=== PATIENT | male | born 1965 | race Caucasian/White ===

== ENCOUNTER 2024-08-21 16:56 | Emergency (ER) | payer BC, SELFPAY ==
[2024-08-21 16:56] VITALS: BMI 22.8
[2024-08-21 17:03] VITALS: BP 117/72
[2024-08-21 17:23] LABS: % Basophils 0.1 % (0-2); % Eosinophils 0.1 % (0-6); % Immature Granulocytes 0.5 % (0-0.5); % Lymphocytes 6.5 % (20.5-51.1); % Monocytes 4.8 % (1.7-9.3); Absolute Lymphocytes 0.5 10^3/uL (1.2-3.4); Absolute Monocytes 0.4 10^3/uL (0.1-0.6); Absolute Neutrophils 6.5 10^3/uL (1.4-6.5); Hematocrit 29.5 % (39.0-52.0); Hemoglobin 9.8 g/dL (13.0-18.0); Mean Corp Hgb Conc. 33.2 g/dL (33.0-37.0); Mean Corpuscular Volume 93.4 fL (80.0-94.0); Mean Platelet Volume 8.8 fL (7.4-10.4); Nucleated Red Blood Cells % 0 % (-); Platelet Count 231 10^3/uL (130-400); Red Blood Cell Count 3.16 10^6/uL (4.70-6.10); Red Cell Dist. Width 16.5 % (11.5-14.5); White Blood Cell Count 7.3 10^3/uL (4.8-10.8)
[2024-08-21 17:43] LABS: NT-proBNP 150 pg/ml
[2024-08-21 17:53] LABS: ALT (SGPT) 66 U/L (0-50); AST (SGOT) 43 U/L (17-59); Albumin 3.5 g/dl (3.5-5.0); Alkaline Phosphatase 93 U/L (38-126); Blood Urea Nitrogen 24 mg/dl (9-20); Calcium 9.2 mg/dl (8.4-10.2); Carbon Dioxide 24 mmol/L (22-30); Chloride 103 mmol/L (98-107); Glucose 251 mg/dl (70-99); Potassium 4.6 mmol/L (3.5-5.1); Sodium 136 mmol/L (135-145); Total Bilirubin 0.9 mg/dl (0.2-1.3); Total Protein 5.9 g/dl (6.3-8.2); eGFR > 60.00
[2024-08-21 19:01] LABS: Erythrocyte Sed Rate 68 mm/hour (0-20)
--- NOTE | 2024-08-21 19:22 | ED.GENMED ---
History of Present Illness
General
Chief Complaint: Swelling
Time Seen by Provider: 08/21/24 18:29
History of Present Illness
History of Present Illness:
TIME OF INITIAL ENCOUNTER: 7:05 PM
HPI: Patient presents with about 1 week of lower extremity edema right greater than left. He has a history of psoriatic arthritis on Remicade. He has not had swelling like this in the past. I also noted lesion at the right elbow and he states it
is likely related to her psoriatic arthritis.
EXAM:
GENERAL: Well appearing in no distress
HEENT: Moist oral mucosa
CARDIOVASCULAR: No murmurs, normal heart rate, regular rhythm, No chest wall tenderness
PULMONARY: No respiratory distress, breath sounds are clear and equal
ABDOMEN: Soft with no peritoneal signs, no tenderness
NEUROLOGIC: Excellent strength all extremities, no coordination deficits
PSYCHIATRIC: Appropriate mental status, normal insight and judgement
EXTREMITIES: There is right greater than left pitting edema with some erythema and areas of patches that are more erythematous, concerning for cellulitis versus erythema nodosum
SKIN: As above
NUMBER AND COMPLEXITY OF PROBLEMS ADDRESSED AT THE ENCOUNTER
� Chronic conditions affecting care: Psoriatic versus rheumatoid arthritis, high blood pressure, hyperlipidemia, diabetes
� Acute Exacerbation and/or Progression of Chronic Illness: This is an acute problem
� Differential Diagnosis includes: Erythema nodosum, cellulitis, CHF, DVT, venous insufficiency, anemia
AMOUNT AND/OR COMPLEXITY OF DATA TO BE REVIEWED AND ANALYZED
� I performed an independent evaluation of and my interpretation is:
EKG: Sinus 105, baseline artifact
CT:
X-rays:
Laboratory Studies: White count normal at 7.3, hemoglobin is only 9.8 down significantly from prior, sed rate is 68, BNP 150, CRP 78
Other: Ultrasound imaging shows no DVT
� Review of other/old records: Hemoglobin 2016 was 16.6
� Clinical information was obtained by an independent historian: I spoke to at bedside
� Prescriptions/Medications Considered but not given:
� Further testing considered but not performed:
RISK OF COMPLICATIONS AND/OR MORBIDITY OR MORTALITY OF PATIENT MANAGEMENT
� Social determinants of health affecting care: Lives at home
� Discussion with other providers:
� Escalation of care including admission/observation vs risk of discharge considered: Ultrasound imaging obtained. We talked about the possibly of cellulitis however white count is normal and he is afebrile. Possible erythema
nodosum as sed rate is elevated. He is a diabetic.
ANY OTHER UPDATES:
Cellulitis (soft tissue infection) is a possibility as he is a diabetic however white blood cell count and temperature both are normal. I am sending a prescription for Keflex.
Erythema nodosum is another possibility elevated inflammatory markers (the C-reactive protein is 78 and sed rate is 68 disease). Both of these numbers are commonly elevated in other inflammatory conditions such as psoriatic arthritis. He has a
land use planner in [place] that he can follow-up with.
We gave a one-time dose of furosemide 20 mg (water pill)
Ultrasound shows no sign of blood clot. Blood work shows no sign of congestive heart failure.
Hemoglobin level is low at 9.8. He denies any rectal bleeding indicating that he has normal brown stool. The only other blood work that I have is from 2016 when your hemoglobin was over 16.
I also encouraged him to try to keep your legs elevated is much as possible.
Past History
Past History
ED Past Medical History: IDDM
ED Past Surgical History: Negative Cardiac
Social History
Tobacco: Non-smoker
Alcohol: Occasional
Drug: None
Personal:
Living: with family
Employment: Employed
Family History
Family History: Other (Kidney stones)
Phy Exam
Physical Exam
Physical Exam:
See HPI
Scores
Heart Failure Risk
Heart Failure Risk Score: Not Applicable
Course
Orders/Labs/Results
Orders:
Orders
08/21/24 17:08
Electrocardiogram (*1) Urgent
Reason for Study: Other
Other Reason for Exam: edema
08/21/24 17:09
EKG- Treatment ONCE
08/21/24 17:14
C-Reactive Protein Urgent
Comment: ADD ON
CMP [Comprehensive Metabolic Panel] Urgent
Complete Blood Count/With Diff Urgent
Erythrocyte Sed Rate Urgent
Comment: ADD ON
NT-proBNP Urgent
TSH Reflex To Free T4 Urgent
Comment: ADD ON
08/21/24 18:31
Add On- LAB Routine
Comments:: please add on to prior chemistry
Tests Added?: TSH reflex to free T4
08/21/24 18:44
US Legs, Bilateral [US Periph Venous LOWER Ext Scotty] Urgent
Comment:
Reason For Exam: R>L edema
08/21/24 18:46
Add On- LAB Urgent
Tests Added?: cRP ESR
08/21/24 19:46
Cephalexin Monohydrate [Keflex] 500 mg PO NOW STA
Furosemide [Lasix] 20 mg PO NOW STA
Abnormal Lab Results
08/21/24
17:14
RBC 3.16 L 10^6/uL
(4.70-6.10)
Hgb 9.8 L g/dL
(13.0-18.0)
Hct 29.5 L %
(39.0-52.0)
RDW 16.5 H %
(11.5-14.5)
Absolute Lymphs (auto) 0.5 L 10^3/uL
(1.2-3.4)
Neutrophils % 88.0 H %
(42.2-75.2)
Lymphocytes % 6.5 L %
(20.5-51.1)
ESR 68 H mm/hour
(0-20)
BUN 24 H mg/dl
(9-20)
Glucose 251 H mg/dl
(70-99)
ALT 66 H U/L
(0-50)
C-Reactive Protein 78.10 H mg/L
(0.0-10.00)
Total Protein 5.9 L g/dl
(6.3-8.2)
08/21/24 17:14
08/21/24 17:14
Vital Signs
Initial and Last Documented VS:
Initial Vital Signs
Temp Pulse Resp BP Pulse Ox
37.3 C 99 18 117/72 98
08/21/24 17:03 08/21/24 17:03 08/21/24 17:03 08/21/24 17:03 08/21/24 17:03
Last Documented Vital Signs
Temp Pulse Resp BP Pulse Ox
37.3 C 99 18 117/72 98
08/21/24 17:03 08/21/24 17:03 08/21/24 17:03 08/21/24 17:03 08/21/24 17:03
*Critical Care Note
Total Time (30-74mins, 75-104mins- exclusive of procedures): Not Applicable
ED Attending Note
-
Portions of this chart may have been created with voice recognition software.� Occasional wrong word or��sound alike� substitutions may have occurred due to the inherent limitations of voice recognition software.
Discharge Plan
Departure
Patient Disposition: Home (Routine Discharge)
Date of Disposition: 08/21/24
Time of Disposition: 19:47
Patient with high blood pressure during this ER visit?: Yes
Discharge Problem:
Edema
Instructions: Dependent Edema (DC)
Prescriptions:
New
cephalexin 500 mg capsule
500 mg PO QID Qty: 28 0RF
No Action
amoxicillin-pot clavulanate 1 TABLET tablet
1 tab PO Q12 Qty: 20 0RF
hydrocodone-acetaminophen [Vicodin] 1 EACH tablet
1 ea PO Q4 PRN (Reason: pain) Qty: 14 0RF
levofloxacin 500 MG tablet
500 mg PO DAILY Qty: 10 0RF
Activity Restrictions/Additional Instructions:
Cellulitis (soft tissue infection) is a possibility as you are diabetic however your white blood cell count and your temperature both are normal. I am sending a prescription for Keflex to your pharmacy.
Erythema nodosum is another possibility as you have elevated inflammatory markers (the C-reactive protein is 78 and sed rate is 68 disease). Both of these numbers are commonly elevated in other inflammatory conditions such as psoriatic arthritis.
Erythema nodosum typically gets better on its own.
We gave a one-time dose of furosemide 20 mg (water pill)
Ultrasound shows no sign of blood clot. Blood work shows no sign of congestive heart failure.
Your hemoglobin level is low at 9.8. The only other blood work that I have is from 2016 when your hemoglobin was over 16.
Return here if worse or other concerns and I recommend that you follow-up your primary care doctor as well as your land use planner.
Try to keep your legs elevated is much as possible.
Interventions
Interventions:
*Risk Screen - Suicide Last Done: 08/21/24 19:06
*General Assessment Last Done: 08/21/24 19:06
*Neglect/Abuse Screening Last Done: 08/21/24 19:06
*ED- Fall Risk Assessment Last Done: 08/21/24 19:06
ED- Cardiac Assessment Last Done: 08/21/24 19:03
ED- Pulmonary Assessment Last Done: 08/21/24 19:03
ED-Skin Assessment Last Done: 08/21/24 19:03
Discharge Date and Time
Print Language: NEPALESE
[2024-08-21] MEDS: LASIX 20 MG PO (19:54)
[2024-08-21] MEDS: KEFLEX 500 MG PO (19:54)
[2024-08-21 19:57] VITALS: BP 136/82
[2024-08-21 19:57] LABS: TSH Reflex To Free T4 0.78 uIU/ml (0.47-4.68)
== END 2024-08-21 20:50 | disposition home or self-care (01) ==
LOC: EMR 16:56
PROVIDERS: Emergency Medicine; EMERGENCY PHYSICIAN Emergency Medicine; FAMILY PHYSICIAN Preventive Medicine Obesity Medicine
DX: R60.0 Localized edema (principal); R03.0 Elevated blood-pressure reading, without diagnosis of hypertension; L40.50 Arthropathic psoriasis, unspecified; E11.9 Type 2 diabetes mellitus without complications; Z79.899 Other long term (current) drug therapy
CPT/HCPCS: 99284; 80053; 83880; 84443; 85025; 85652; 86140; 93005; 93970

== ENCOUNTER 2025-02-13 09:37 | Emergency (ER) | payer BC, SELFPAY ==
[2025-02-13 09:47] VITALS: BP 126/76
--- NOTE | 2025-02-13 12:18 | ED.GENMED ---
History of Present Illness
General
Chief Complaint: Extremity Pain (non-traumatic)
Time Seen by Provider: 02/13/25 11:45
History of Present Illness
History of Present Illness:
59-year-old male with history of insulin-dependent diabetes, hypertension, and hyperlipidemia presents to the emergency department for evaluation of left knee swelling and left thigh redness and pain for the past several days. Has had left knee
swelling for quite some time previously received steroid injections. Pathologist attempted aspiration earlier this week with output. He did receive a steroid injection approximately 2 months ago. Having increased difficulty walking. No fevers or
chills
Past History
Past History
ED Past Medical History: IDDM
ED Past Surgical History: Negative Cardiac
Social History
Tobacco: Non-smoker
Alcohol: Occasional
Drug: None
Personal:
Living: with family
Employment: Employed
Family History
Family History: Other (Kidney stones)
Review of Systems
Review of Systems
Allergies reviewed?: Yes
All Other Systems: ROS reviewed and negative except as documented in HPI and ROS
Phy Exam
Physical Exam
Physical Exam:
GEN: Well appearing, NAD, WDWN
HEENT: Oral mucosa moist, no scleral icterus
Cardiac: Regular rate
Lung: No respiratory distress, no tachypnea
MSK: Moderate left knee effusion, there is mild pain with passive range of motion. No obvious erythema to left knee however erythema extends from the medial distal thigh to the mid thigh as well as laterally, mildly tender to palpation in the thigh
Skin: Good color, no pallor or jaundice, no rashes
Neuro: AO x3, moves all extremities freely
Psych: Calm, cooperative
Course
Orders/Labs/Results
Orders:
Orders
02/13/25 09:54
CR Knee - Left 4 Or More View* Urgent
Comment:
Reason For Exam: pain swelling
Legs, left US [US Periph Venous LOWER Ext LT] Urgent
Comment:
Reason For Exam: pain swelling
02/13/25 12:18
CeFAZolin 2 GRAM [Ancef] 2 grams in 10 ml IV NOW
02/13/25 12:31
CRP [C-Reactive Protein] Urgent
Complete Blood Count/With Diff Urgent
Comprehensive Metabolic Panel Urgent
02/13/25 12:45
Body Fluid Cell Count Urgent
What is the Body Fluid: L knee
Date Specimen was Collected: 02/13/25
Time Specimen was Collected: 12:43
Fluid Culture with Gram Stain Urgent
NIMO Source: Knee
Specimen Description: Left
Date Specimen was Collected: 02/13/25
Time Specimen was Collected: 12:43
Abnormal Lab Results
02/13/25
12:31
RBC 3.40 L 10^6/uL
(4.70-6.10)
Hgb 9.4 L g/dL
(13.0-18.0)
Hct 29.6 L %
(39.0-52.0)
MCHC 31.8 L g/dL
(33.0-37.0)
RDW 17.9 H %
(11.5-14.5)
Absolute Neuts (auto) 8.4 H 10^3/uL
(1.4-6.5)
Absolute Lymphs (auto) 0.4 L 10^3/uL
(1.2-3.4)
Neutrophils % 88.5 H %
(42.2-75.2)
Lymphocytes % 4.3 L %
(20.5-51.1)
BUN 24 H mg/dl
(9-20)
C-Reactive Protein 58.50 H mg/L
(0.0-10.00)
Total Protein 6.1 L g/dl
(6.3-8.2)
02/13/25 12:31
02/13/25 12:31
Vital Signs
Initial and Last Documented VS:
Initial Vital Signs
Temp Pulse Resp BP Pulse Ox
97.9 F 114 16 126/76 100
02/13/25 09:47 02/13/25 09:47 02/13/25 09:47 02/13/25 09:47 02/13/25 09:47
Last Documented Vital Signs
Temp Pulse Resp BP Pulse Ox
97.9 F 104 16 126/76 100
02/13/25 09:47 02/13/25 12:40 02/13/25 12:40 02/13/25 09:47 02/13/25 12:40
Procedures
Incision/Drainage/Joint Aspiration
L knee:
Anethesia: 1% Lidocaine
Preparation: cleaned with Betadine
Type of procedure: aspiration
Nature of site: other (joint)
How much fluid was obtained?: scant amount
Fluid description: clear and blood tinged
Treatment: bandaid applied
MDM/Problems Addressed
MDM/Problems Addressed:
Bedside aspiration was performed of the left knee yielding a very small amount of clear with blood-tinged fluid. Does not appear murky suggesting infectious arthritis. Cell count unable to perform due to clotted fluid, ultrasound was used to guide
the procedure which did not yield any visible large effusion however I was unable to aspirate any significant quantity of this. Will treat with antibiotics for superficial cellulitis to the left lower extremity laceration patient was to follow-up.
*Pulse Oximetry
SaO2: 100
Oxygen Mode of Delivery: Room air
Patient hypoxic: no
*Critical Care Note
Total Time (30-74mins, 75-104mins- exclusive of procedures): Not Applicable
ED Attending Note
-
Portions of this chart may have been created with voice recognition software.� Occasional wrong word or��sound alike� substitutions may have occurred due to the inherent limitations of voice recognition software.
Discharge Plan
Departure
Patient Disposition: Home (Routine Discharge)
Date of Disposition: 02/13/25
Time of Disposition: 13:28
Patient with high blood pressure during this ER visit?: No
Discharge Problem:
Cellulitis of left lower extremity, Effusion of left knee
Instructions: Cellulitis (skin infection) in adults (DC)
Prescriptions:
New
cephalexin 500 mg capsule
500 mg PO Q6H 7 Days Qty: 28 0RF
Referrals:
Alfonso Powell MD [Active, Orthopedics]
Activity Restrictions/Additional Instructions:
Follow up with Orthopedics for re-evaluation
Return to the ER if redness to the leg worsens
Interventions
Interventions:
*Risk Screen - Suicide Last Done: 02/13/25 09:47
*General Assessment Last Done: 02/13/25 12:41
*Neglect/Abuse Screening Last Done: 02/13/25 09:47
*ED- Fall Risk Assessment Last Done: 02/13/25 12:41
*Nursing Disposition Last Done: 02/13/25 13:39
ED-Skin Assessment Last Done: 02/13/25 12:41
ED-Peripheral Vascular Assessment Last Done: 02/13/25 12:41
ED-Musculoskeletal Assessment Last Done: 02/13/25 12:41
Discharge Date and Time
Print Language: ICELANDIC
[2025-02-13 12:21] LABS: Glucose - Point of Care 73 mg/dl (70-99)
[2025-02-13 12:29] VITALS: BMI 22.5
[2025-02-13] MEDS: ANCEF 10 IV (12:36)
[2025-02-13 12:37] LABS: Hematocrit 29.6 % (39.0-52.0); Hemoglobin 9.4 g/dL (13.0-18.0); Mean Corp Hgb Conc. 31.8 g/dL (33.0-37.0); Mean Corpuscular Volume 87.1 fL (80.0-94.0); Nucleated Red Blood Cells % 0 % (-); Platelet Count 279 10^3/uL (130-400); Red Cell Dist. Width 17.9 % (11.5-14.5)
[2025-02-13 13:04] LABS: ALT (SGPT) 48 U/L (0-50); AST (SGOT) 45 U/L (17-59); Albumin 3.5 g/dl (3.5-5.0); Alkaline Phosphatase 62 U/L (38-126); Blood Urea Nitrogen 24 mg/dl (9-20); Calcium 10.0 mg/dl (8.4-10.2); Carbon Dioxide 28 mmol/L (22-30); Chloride 104 mmol/L (98-107); Estimated Creatinine Clearance 97 ml/min; Glucose 74 mg/dl (70-99); Potassium 4.2 mmol/L (3.5-5.1); Sodium 136 mmol/L (135-145); Total Protein 6.1 g/dl (6.3-8.2); eGFR > 60.00
[2025-02-13 13:08] LABS: C-Reactive Protein 58.50 mg/L (0.0-10.00)
[2025-02-13 14:04] LABS: Body Fluid Granulocytes 68 %
[2025-02-13 14:11] LABS: Body Fluid Second Tech CF
== END 2025-02-13 13:39 | disposition home or self-care (01) ==
LOC: EMR 09:37
PROVIDERS: Physician Assistant; EMERGENCY PHYSICIAN Emergency Medicine
DX: L03.116 Cellulitis of left lower limb (principal); M25.462 Effusion, left knee; E10.9 Type 1 diabetes mellitus without complications; I10 Essential (primary) hypertension; E78.5 Hyperlipidemia, unspecified; Z79.4 Long term (current) use of insulin
CPT/HCPCS: 99284; 20611; 96374; 73564; 80053; 82962; 85025; 86140; 87015; 87070; 87205; 89051; 93971